=== PATIENT | male | born 1965 | race Caucasian/White ===

== ENCOUNTER 2024-04-02 04:47 | Inpatient (IN) | payer MEDICAID ==
[~2024-04-02] VITALS: Ht 175.3 cm; Wt 84.1 kg
[2024-04-02] VITALS (7 sets, daily range): BP systolic 79–95; BP diastolic 41–63; PULSE 86–90; RESP 12–19; TEMP 97.4–97.6; O2SAT 88–96
[~2024-04-02 04:47] MED LIST: CYCL-394 PO; FENT1PAT7 TOP; GABA300C PO; HYDR-4383 PO; LORA-269 PO; MELA3TAB39 PO; METH-806 PO; PANT-47 PO; PHEN-716 PO; POLY17PO10 PO; tamsulosin capsule PO
[2024-04-02 06:47] LABS: BASOPHILS % (AUTO) 0.5 % (0-1); EOSINOPHILS # (AUTO) 0.2 X10'3 (0-0.9); EOSINOPHILS % (AUTO) 2.4 % (0-6); HEMATOCRIT 30.4 % (42.0-52.0); HEMOGLOBIN 9.7 g/dl (14.0-17.9); LYMPHOCYTES # (AUTO) 1.4 X10'3 (1.1-4.8); LYMPHOCYTES % (AUTO) 15.2 % (21-51); MEAN CORPUSCULAR HEMOGLOBIN 26.6 PG (27.0-31.0); MEAN CORPUSCULAR HGB CONC 32.1 g/dL (33.0-36.5); MEAN CORPUSCULAR VOLUME 83.1 FL (78-98); MEAN PLATELET VOLUME 7.6 FL (7.4-10.4); MONOCYTES # (AUTO) 0.5 X10'3 (0-0.9); MONOCYTES % (AUTO) 4.9 % (2-12); NEUTROPHILS # (AUTO) 7.3 X10'3 (1.8-7.7); PLATELET COUNT 262 X10'3 (140-440); RED BLOOD COUNT 3.66 X10'6 (4.70-6.10); RED CELL DISTRIBUTION WIDTH 16.5 % (11.5-14.5); WHITE BLOOD COUNT 9.5 X10'3 (4.5-11.0)
[2024-04-02 06:57] LABS: ALANINE AMINOTRANSFERASE 8 U/L (12-78); ALBUMIN 2.3 G/DL (3.4-5.0); ALBUMIN/GLOBULIN RATIO 0.5 (1.1-1.5); ALKALINE PHOSPHATASE 75 IU/L (46-116); ANION GAP 7 (8-16); ASPARTATE AMINO TRANSFERASE 8 U/L (10-37); BILIRUBIN,DIRECT 0.1 MG/DL (0-0.3); BILIRUBIN,TOTAL 0.3 MG/DL (0.1-1.0); BLOOD UREA NITROGEN 48 MG/DL (7-18); BUN/CREATININE RATIO 50.5 (10.0-20.0); CALCIUM 8.8 MG/DL (8.5-10.1); CHLORIDE 101 MMOL/L (99-107); CREATININE 0.95 MG/DL (0.60-1.10); GLUCOSE 119 MG/DL (70-104); LIPASE 20 U/L (16-77); MAGNESIUM 2.1 MG/DL (1.5-2.4); POTASSIUM 3.9 MMOL/L (3.5-5.1); SODIUM 137 MMOL/L (135-145); TOTAL CARBON DIOXIDE 28.7 MMOL/L (24-32); TOTAL PROTEIN 7.3 G/DL (6.4-8.2); eCRCL 84 ML/MIN; eGFR 81 ML/MIN
[2024-04-02] MEDS: normal saline 1000ML IV soln IVB ONE (09:32)
[2024-04-02] MEDS: HYDROcodone/acetaminophen 10/325mg tab PO PRN (09:33)
[2024-04-02] MEDS: pantoprazole 40 MG vial IV STA (09:33)
[2024-04-02] MEDS: levoFLOXACIN-Levaquin 750MG/D5 150 ML IV ONE (09:34)
[2024-04-02] MEDS ORDERED: ondansetron/PF 4mg/2ml inj IV PRN (09:35)
[2024-04-02] MEDS ORDERED: potassium Cl 40MEQ/1/2NS 520ml 520 ML IV PRN (09:35)
[2024-04-02] MEDS ORDERED: acetaminophen 325mg tablet PO PRN ×2 (09:35)
[2024-04-02] MEDS ORDERED: magnesium 4gm in 100ml NS 100 ML IV PRN (09:35)
[2024-04-02] MEDS ORDERED: HYDROcodone/acetaminophen 5mg/325mg tablet PO PRN (09:35)
[2024-04-02] MEDS ORDERED: magnesium 2GM in 50ml NS 50 ML IV PRN (09:35)
[2024-04-02] MEDS ORDERED: magnesium Cl slow-release 64mg tablet PO PRN (09:35)
[2024-04-02] MEDS ORDERED: potassium Cl 20 mEq SR tablet PO PRN ×2 (09:35)
[2024-04-02] MEDS: morphine 2 MG/ML inj. syringe IV PRN (10:28)
[2024-04-02] MEDS ORDERED: iohexol 300mg/ml 100ml inj. ONE (10:35)
[2024-04-02] MEDS ORDERED: APIX5TAB5 PO (11:20)
[2024-04-02] MEDS ORDERED: APIX5TAB3 PO (11:20)
[2024-04-02] MEDS ORDERED: ESCI-8 PO (11:25)
[2024-04-02] MEDS ORDERED: GUA (11:27)
[2024-04-02] MEDS ORDERED: GUAIFENESIN PO (11:27)
[2024-04-02] MEDS ORDERED: LACTOBACILLUS ACIDOPHILUS PO (11:30)
[2024-04-02] MEDS ORDERED: PANT-47 PO (11:37)
[2024-04-02] MEDS ORDERED: POLY17PO10 PO (11:37)
[2024-04-02] MEDS ORDERED: QUET25TA PO (11:37)
[2024-04-02] MEDS ORDERED: OXYB5TAB21 PO (11:37)
[2024-04-02] MEDS ORDERED: NYST50002 PO (11:37)
[2024-04-02] MEDS ORDERED: METH-603 PO (11:37)
[2024-04-02] MEDS ORDERED: HYDR1LIQ3 IV (11:59)
[2024-04-02] MEDS ORDERED: TIOT4MIS2 INH (11:59)
[2024-04-02] MEDS ORDERED: ONDA4TAB12 PO (11:59)
[2024-04-02] MEDS ORDERED: ZINC57OI3 TOP (11:59)
[2024-04-02] MEDS ORDERED: VALP250S3 PO (11:59)
[2024-04-02] MEDS ORDERED: OXYCODONE HCL PO ×2 (11:59)
[2024-04-02] MEDS ORDERED: SENN8.6T19 PO (11:59)
[2024-04-02] MEDS ORDERED: CLON-850 PO (11:59)
[2024-04-02] MEDS ORDERED: SIME80TA15 PO (11:59)
[2024-04-02] MEDS ORDERED: VANC750P15 IV (11:59)
[2024-04-02] MEDS ORDERED: oxybutynin 5mg tablet PO PRN (12:10)
[2024-04-02] MEDS ORDERED: ondansetron 4mg rapidly disintigrating tab PO PRN (12:10)
[2024-04-02] MEDS ORDERED: guaiFENesin 200 MG/10 ML oral syrup UD cup PO PRN (12:10)
[2024-04-02] MEDS ORDERED: valproic acid 250mg/5ml UD oral syrup PO PRN (12:10)
[2024-04-02] MEDS ORDERED: HYDROMORPHONE HCL 1 MG IV PRN (12:10)
[2024-04-02] MEDS ORDERED: ipratropium 0.5 MG/2.5ML nebule NEB PRN (12:10)
[2024-04-02] MEDS ORDERED: methadone 5mg tablet PO SCH (12:13)
[2024-04-02] MEDS: clonazePAM 0.5mg tablet PO SCH (12:52)
[2024-04-02] MEDS ORDERED: methadone 10mg tablet PO SCH (14:27)
[2024-04-02] MEDS: polyethylene glycol 3350 17gm powd pack PO SCH (16:50)
[2024-04-02] MEDS: sennosides 8.6mg tablet PO SCH (16:50)
[2024-04-02] MEDS: ESCITALOPRAM 10 mg tablet 10 MG TABLET PO SCH (16:50)
[2024-04-02] MEDS: normal saline 1000ml 1,000 ML IV SCH (16:50)
[2024-04-02] MEDS: pantoprazole 40mg Tablet.DR PO SCH (16:50)
[2024-04-02] MEDS: lactobacillus rhamnosus 10,000 MMU CELLS/CAPSULE PO SCH (16:50)
[2024-04-02] MEDS: bisacodyl 10mg suppository rectal RC STA (19:00)
[2024-04-02] MEDS: zinc oxide ointment 30gm tube TP SCH (20:00)
[2024-04-02] MEDS: nystatin 500,000 unit/5ML UD oral suspension PO SCH (20:00)
[2024-04-02] MEDS: QUEtiapine 25mg tablet PO SCH (20:35)
[2024-04-02] MEDS: apixaban 5mg tablet PO SCH (20:35)
[2024-04-02] MEDS ORDERED: temazepam 15mg capsule PO PRN (21:00)
[2024-04-02] MEDS: methadone 5mg tablet PO SCH (21:17)
[2024-04-03] VITALS (7 sets, daily range): BP systolic 79–117; BP diastolic 47–66; PULSE 83–90; RESP 14–18; TEMP 98.1–98.6; O2SAT 92–96
[2024-04-03 06:22] LABS: BASOPHILS % (AUTO) 0.5 % (0-1); EOSINOPHILS # (AUTO) 0.2 X10'3 (0-0.9); EOSINOPHILS % (AUTO) 3.4 % (0-6); HEMATOCRIT 25.1 % (42.0-52.0); HEMOGLOBIN 7.9 g/dl (14.0-17.9); LYMPHOCYTES # (AUTO) 1.4 X10'3 (1.1-4.8); LYMPHOCYTES % (AUTO) 19.9 % (21-51); MEAN CORPUSCULAR HEMOGLOBIN 26.4 PG (27.0-31.0); MEAN CORPUSCULAR HGB CONC 31.3 g/dL (33.0-36.5); MEAN CORPUSCULAR VOLUME 84.2 FL (78-98); MEAN PLATELET VOLUME 7.5 FL (7.4-10.4); MONOCYTES # (AUTO) 0.4 X10'3 (0-0.9); MONOCYTES % (AUTO) 6.1 % (2-12); NEUTROPHILS # (AUTO) 4.9 X10'3 (1.8-7.7); NEUTROPHILS % (AUTO) 70.1 % (42-75); PLATELET COUNT 221 X10'3 (140-440); RED BLOOD COUNT 2.98 X10'6 (4.70-6.10); RED CELL DISTRIBUTION WIDTH 16.4 % (11.5-14.5)
[2024-04-03 06:39] LABS: % IRON SATURATION 12 % (11-46); ALANINE AMINOTRANSFERASE 12 U/L (12-78); ALBUMIN 2.1 G/DL (3.4-5.0); ALBUMIN/GLOBULIN RATIO 0.5 (1.1-1.5); ALKALINE PHOSPHATASE 58 IU/L (46-116); ANION GAP 4 (8-16); ASPARTATE AMINO TRANSFERASE 10 U/L (10-37); BILIRUBIN,TOTAL 0.2 MG/DL (0.1-1.0); BLOOD UREA NITROGEN 33 MG/DL (7-18); BUN/CREATININE RATIO 42.3 (10.0-20.0); CALCIUM 8.5 MG/DL (8.5-10.1); CHLORIDE 107 MMOL/L (99-107); CREATININE 0.78 MG/DL (0.60-1.10); GLUCOSE 97 MG/DL (70-104); IRON 23 UG/DL (53-167); POTASSIUM 3.8 MMOL/L (3.5-5.1); SODIUM 143 MMOL/L (135-145); TOTAL IRON BINDING CAPACITY 193 UG/DL (259-388); TOTAL PROTEIN 6.5 G/DL (6.4-8.2); eCRCL 102 ML/MIN; eGFR > 90 ML/MIN
[2024-04-03] MEDS: levoFLOXACIN-Levaquin 500mg/D5 100 ML IV SCH (07:40)
[2024-04-03] MEDS ORDERED: LEVO-65 PO (13:25)
[2024-04-03] MEDS: baclofen 10mg tablet PO ONE (15:41)
== END 2024-04-03 19:10 | DRG 133 ==
LOC: ER 04:49 → ED HOLD 09:39 → EDBEDREQ 12:45 → ORTHO 4S 16:10
PROVIDERS: ADMIT Internal Medicine; ATTEND Internal Medicine
PROC: BW241ZZ Computerized Tomography (CT Scan) of Chest and Abdomen using Low Osmolar Contrast (ICD-10-PCS; principal; 2024-04-02)
DX: J96.01 Acute respiratory failure with hypoxia (principal); G82.50 Quadriplegia, unspecified; J18.9 Pneumonia, unspecified organism; K92.0 Hematemesis; G93.89 Other specified disorders of brain; G89.4 Chronic pain syndrome; Z20.822 Contact with and (suspected) exposure to COVID-19; Z93.1 Gastrostomy status; Z86.718 Personal history of other venous thrombosis and embolism; Z88.1 Allergy status to other antibiotic agents; Z79.01 Long term (current) use of anticoagulants
CPT/HCPCS: 36415; 71045; 71260; 74018; 80048; 80053; 80076; 83540; 83550; 83605; 83690; 83735; 84145; 84484; 85025; 86885; 86900; 86901; 87040; 87077; 87081; 87186; 87502; 87503; 87811; 93005; 94760; 96365; 96375; 99285; C9113; G0378; J1956; J2270; J3490; J7030; Q9967

== ENCOUNTER 2024-04-14 11:20 | Day surgery (SDC) | payer MEDICAID, OTHER ==
[~2024-04-14] VITALS: Ht 175.3 cm; Wt 77.7 kg
[~2024-04-14 11:20] MED LIST changes: +APIX5TAB5 PO; +CLON-850 PO; -CYCL-394 PO; +ESCI-8 PO; -FENT1PAT7 TOP; -GABA300C PO; +GUAIFENESIN PO; -HYDR-4383 PO; +HYDR1LIQ3 IV; +LACTOBACILLUS ACIDOPHILUS PO; -LORA-269 PO; -MELA3TAB39 PO; +METH-603 PO; -METH-806 PO; +NYST50002 PO; +ONDA4TAB12 PO; +OXYB5TAB21 PO; -PHEN-716 PO; +QUET25TA PO; +SENN8.6T19 PO; +SIME80TA15 PO; +TIOT4MIS2 INH; +VALP250S3 PO; +VANC750P15 IV; +ZINC57OI3 TOP; -tamsulosin capsule PO
[2024-04-14 11:47] VITALS: BP 108/69; PULSE 69; RESP 13
[2024-04-14] MEDS ORDERED: BACL10TA2 PO (12:24)
[2024-04-14] MEDS ORDERED: POLY17PO10 PO (12:24)
[2024-04-14] MEDS ORDERED: OXYC5CAP22 PO (12:24)
[2024-04-14] MEDS ORDERED: ACET-2971 PO (12:24)
[2024-04-14] MEDS ORDERED: DOCU1ENE3 (12:24)
[2024-04-14] MEDS ORDERED: diphenhydrAMINE 50 mg/ml inj ONE (14:25)
[2024-04-14] MEDS ORDERED: MIDAZolam 1 MG/ML 5ML VIAL ONE (14:25)
[2024-04-14] MEDS ORDERED: fentaNYL/PF 50MCG/1 ML 2ML syringe ONE (14:25)
[2024-04-14] MEDS ORDERED: LIDOcaine 2% Viscous 15ml cup ONE (14:26)
[2024-04-14 14:50] VITALS: BP 83/51; PULSE 60; RESP 15; O2SAT 96
[2024-04-14 15:00] VITALS: BP 82/43; PULSE 68; RESP 16; O2SAT 99
[2024-04-14 15:10] VITALS: BP 93/51; PULSE 61; RESP 14; O2SAT 95
[2024-04-14 15:20] VITALS: BP 89/40; PULSE 63; RESP 17; O2SAT 96
[2024-04-14 16:50] VITALS: RESP 16
[2024-04-14] MEDS: oxyCODONE IR 5mg (immed. release) tablet PO ONE (16:50)
[2024-04-14] MEDS: baclofen 10mg tablet PO PRN (16:50)
== END 2024-04-14 17:00 ==
LOC: GI LAB 11:20
PROVIDERS: ATTEND Internal Medicine Gastroenterology
DX: D50.0 Iron deficiency anemia secondary to blood loss (chronic) (principal); K29.70 Gastritis, unspecified, without bleeding; Z93.1 Gastrostomy status
CPT/HCPCS: 43239; J1200; J2250; J3010; J7030; Z7512; 99152; A4620

== ENCOUNTER 2024-08-22 14:54 | Emergency (ER) | payer MEDICAID, OTHER ==
[~2024-08-22] VITALS: Ht 157.5 cm; Wt 94.0 kg
[~2024-08-22 14:54] MED LIST changes: +ACET-2971 PO; +BACL10TA2 PO; +DOCU1ENE3; +ONDA-243 PO; -ONDA4TAB12 PO; +OXYC5CAP22 PO
[2024-08-22 16:34] LABS: BILIRUBIN,URINE NEGATIVE (Neg); CLARITY,URINE CLOUDY (Clear); COLOR,URINE YELLOW (Yellow); GLUCOSE, URINE NEGATIVE (Neg); KETONES,URINE NEGATIVE (Neg); LEUKOCYTE ESTERASE ,URINE LARGE (Neg); NITRITES, URINE POSITIVE (Neg); OCCULT BLOOD,URINE TRACE-INTACT (Neg); PROTEIN,URINE NEGATIVE (Neg); UROBILINOGEN,URINE 0.2 E.U/dL (0.2-1.0)
[2024-08-22 16:35] LABS: UA COLLECTION TYPE FOLEY CATH
[2024-08-22 16:36] LABS: BASOPHILS % (AUTO) 0.4 % (0-1); EOSINOPHILS # (AUTO) 0.3 X10'3 (0-0.9); HEMATOCRIT 31.9 % (42.0-52.0); LYMPHOCYTES # (AUTO) 1.1 X10'3 (1.1-4.8); LYMPHOCYTES % (AUTO) 17.4 % (21-51); MEAN CORPUSCULAR HEMOGLOBIN 24.5 PG (27.0-31.0); MEAN CORPUSCULAR HGB CONC 31.3 g/dL (33.0-36.5); MEAN CORPUSCULAR VOLUME 78.2 FL (78-98); MEAN PLATELET VOLUME 7.5 FL (7.4-10.4); MONOCYTES # (AUTO) 0.5 X10'3 (0-0.9); MONOCYTES % (AUTO) 7.7 % (2-12); NEUTROPHILS # (AUTO) 4.2 X10'3 (1.8-7.7); NEUTROPHILS % (AUTO) 69.5 % (42-75); PLATELET COUNT 323 X10'3 (140-440); RED BLOOD COUNT 4.08 X10'6 (4.70-6.10); RED CELL DISTRIBUTION WIDTH 19.1 % (11.5-14.5); WHITE BLOOD COUNT 6.1 X10'3 (4.5-11.0)
[2024-08-22 16:45] LABS: SQUAMOUS EPITHELIAL CELL,UR MANY /LPF (FEW)
[2024-08-22 16:46] LABS: YEAST MANY /HPF (NEGATIVE)
[2024-08-22 16:47] LABS: BACTERIA,URINE 4+ /HPF (Neg); TRANSITIONAL EPI CELLS,URINE FEW /HPF; WBC,URINE TNTC /HPF (0-4)
[2024-08-22 16:48] LABS: CAL OXALATE CRYSTALS 1+ /HPF (NEGATIVE)
[2024-08-22 16:50] LABS: ALANINE AMINOTRANSFERASE 13 U/L (12-78); ALBUMIN 2.3 G/DL (3.4-5.0); ALBUMIN/GLOBULIN RATIO 0.4 (1.1-1.5); ALKALINE PHOSPHATASE 85 IU/L (46-116); ANION GAP -1 (8-16); ASPARTATE AMINO TRANSFERASE 7 U/L (10-37); BILIRUBIN,TOTAL 0.2 MG/DL (0.1-1.0); BLOOD UREA NITROGEN 23 MG/DL (7-18); BUN/CREATININE RATIO 22.5 (10.0-20.0); CALCIUM 8.8 MG/DL (8.5-10.1); CHLORIDE 98 MMOL/L (99-107); CREATININE 1.02 MG/DL (0.60-1.10); GLUCOSE 131 MG/DL (70-104); LIPASE 20 U/L (16-77); POTASSIUM 4.3 MMOL/L (3.5-5.1); SODIUM 137 MMOL/L (135-145); TOTAL CARBON DIOXIDE 39.9 MMOL/L (24-32); TOTAL PROTEIN 7.7 G/DL (6.4-8.2); eCRCL 60 ML/MIN; eGFR 75 ML/MIN
[2024-08-22] MEDS: levoFLOXACIN 250mg tablet PO ONE (16:50)
[2024-08-22 18:20] LABS: ANISOCYTOSIS 2+; MICROCYTOSIS 1+; PLATELET ESTIMATE NORMAL
[2024-08-22 18:21] LABS: POLYCHROMASIA 1+; STOMATOCYTES 2+
[2024-08-22 18:39] VITALS: BP 113/73; PULSE 98; RESP 16; TEMP 98.2; O2SAT 98
[2024-08-22] MEDS: oxyCODONE IR 5mg (immed. release) tablet PO ONE (19:08)
[2024-08-22] MEDS: HYDROmorphone inj. 0.5 MG/0.5 ML DISP.SYRIN IV ONE (19:18)
== END 2024-08-22 19:19 ==
LOC: ER 14:54
DX: G43.909 Migraine, unspecified, not intractable, without status migrainosus (principal); N39.0 Urinary tract infection, site not specified; R11.10 Vomiting, unspecified; G82.50 Quadriplegia, unspecified; Z74.01 Bed confinement status; Z88.1 Allergy status to other antibiotic agents; Z88.0 Allergy status to penicillin; Z79.899 Other long term (current) drug therapy
CPT/HCPCS: 36415; 74176; 80053; 81001; 83690; 85008; 85025; 87077; 87088; 87186; 93005; 99285

== ENCOUNTER 2024-10-22 13:04 | Inpatient (IN) | payer MEDICAID ==
[~2024-10-22] VITALS: Ht 172.7 cm; Wt 94.0 kg
[~2024-10-22 13:04] MED LIST changes: +VALP250S26 PO; -VALP250S3 PO
[2024-10-22] MEDS: midazolam 100mg in NS 100ml 100 ML IV PRN (13:17)
[2024-10-22 13:25] VITALS: BP 98/64; PULSE 93; RESP 12; O2SAT 94
[2024-10-22] MEDS: FENTANYL-0.9 % NACL/PF 100 ML IV SCH ×2 (13:33→17:40)
[2024-10-22 13:47] LABS: ABG BASE EXCESS 9.5 mmol/L (-2.0-3.0); ABG HCO3 36.6 mmol/L (21.0-28.0); ABG OXYGEN SATURATION 91.2 % (94.0-98.0); ABG PCO2 (T) 63.2 mmHg (35.0-48.0); ABG PH (T) 7.379 (7.350-7.450); ABG PO2 (T) 58.4 mmHg (83.0-108.0); ALLEN'S TEST POSITIVE; FHHb 8.8 % (0.0-5.0); FMetHb 0.3 % (0.0-1.5); FO2Hb 90.9 % (94.0-98.0); MODE VENT - PRVC; PATIENT TEMPERATURE 36.6; PEEP 5 cm H2O; RESPIRATORY RATE 12 b/min; TIDAL VOLUME 425 mL; TOTAL HEMOGLOBIN 10.5 G/dl (13.5-17.5)
[2024-10-22] MEDS: propofol 1000mg/100ml bottle 100 ML IV ONE (13:58)
[2024-10-22] MEDS: NORepinephrine 8mg/ 250ml NS 250 ML IV SCH (14:00)
[2024-10-22] MEDS ORDERED: NORepinephrine 8mg/ 250ml NS 250 ML IV PRN (14:00)
[2024-10-22] MEDS: propofol 1000mg/100ml bottle 100 ML IV SCH (14:04)
[2024-10-22 14:48] LABS: BASOPHILS # (AUTO) 0.1 X10'3 (0-0.2); BASOPHILS % (AUTO) 0.3 % (0-1); EOSINOPHILS % (AUTO) 0 % (0-6); HEMATOCRIT 30.4 % (42.0-52.0); HEMOGLOBIN 9.3 g/dl (14.0-17.9); LYMPHOCYTES # (AUTO) 0.7 X10'3 (1.1-4.8); LYMPHOCYTES % (AUTO) 3.4 % (21-51); MEAN CORPUSCULAR HEMOGLOBIN 23.9 PG (27.0-31.0); MEAN CORPUSCULAR HGB CONC 30.5 g/dL (33.0-36.5); MEAN CORPUSCULAR VOLUME 78.2 FL (78-98); MEAN PLATELET VOLUME 7.2 FL (7.4-10.4); MONOCYTES # (AUTO) 1.6 X10'3 (0-0.9); MONOCYTES % (AUTO) 7.4 % (2-12); NEUTROPHILS # (AUTO) 19.2 X10'3 (1.8-7.7); NEUTROPHILS % (AUTO) 88.9 % (42-75); PLATELET COUNT 369 X10'3 (140-440); RED BLOOD COUNT 3.88 X10'6 (4.70-6.10); RED CELL DISTRIBUTION WIDTH 17.4 % (11.5-14.5); WHITE BLOOD COUNT 21.5 X10'3 (4.5-11.0)
[2024-10-22 15:01] LABS: APTT 31 SECONDS (22-32); PROTHROMBIN TIME 10.3 SECONDS (9.0-12.0)
[2024-10-22 15:02] LABS: ALANINE AMINOTRANSFERASE 12 U/L (12-78); ALBUMIN 2.2 G/DL (3.4-5.0); ALBUMIN/GLOBULIN RATIO 0.4 (1.1-1.5); ALKALINE PHOSPHATASE 76 IU/L (46-116); ANION GAP 2 (8-16); ASPARTATE AMINO TRANSFERASE 13 U/L (10-37); BILIRUBIN,TOTAL 0.4 MG/DL (0.1-1.0); BLOOD UREA NITROGEN 30 MG/DL (7-18); CALCIUM 9.3 MG/DL (8.5-10.1); CHLORIDE 100 MMOL/L (99-107); CREATININE 1.25 MG/DL (0.60-1.10); GLUCOSE 139 MG/DL (70-104); POTASSIUM 4.6 MMOL/L (3.5-5.1); SODIUM 141 MMOL/L (135-145); TOTAL CARBON DIOXIDE 39.3 MMOL/L (24-32); TOTAL PROTEIN 7.7 G/DL (6.4-8.2); eCRCL 62 ML/MIN; eGFR 59 ML/MIN
[2024-10-22 15:26] VITALS: BP 91/57; PULSE 92; RESP 16; O2SAT 98
[2024-10-22 15:35] LABS: BILIRUBIN,URINE NEGATIVE (Neg); CLARITY,URINE CLOUDY (Clear); COLOR,URINE YELLOW (Yellow); GLUCOSE, URINE NEGATIVE (Neg); KETONES,URINE NEGATIVE (Neg); LEUKOCYTE ESTERASE ,URINE LARGE (Neg); NITRITES, URINE NEGATIVE (Neg); OCCULT BLOOD,URINE MODERATE (Neg); PROTEIN,URINE 30 mg/dl (Neg); UROBILINOGEN,URINE 0.2 E.U/dL (0.2-1.0)
[2024-10-22 15:37] LABS: UA COLLECTION TYPE FOLEY CATH
[2024-10-22 15:49] LABS: BACTERIA,URINE 3+ /HPF (Neg); SQUAMOUS EPITHELIAL CELL,UR FEW /LPF (FEW); TRANSITIONAL EPI CELLS,URINE FEW /HPF; WBC CLUMPS,URINE FEW /HPF (NEGATIVE); WBC,URINE 30-50 /HPF (0-4)
[2024-10-22 15:50] LABS: AMORPHOUS URATES 1+; YEAST MANY /HPF (NEGATIVE)
[2024-10-22] MEDS: normal saline 500ml IV soln 500 ML IV SCH (15:55)
[2024-10-22] MEDS: normal saline 1000ml 1,000 ML IV ONE ×2 (15:56→17:59)
[2024-10-22] MEDS ORDERED: iohexol 300mg/ml 100ml inj. ONE (16:56)
[2024-10-22 17:40] VITALS: PULSE 93; RESP 16; O2SAT 98
[2024-10-22] MEDS ORDERED: acetaminophen 325mg tablet PO PRN ×2 (17:40)
[2024-10-22] MEDS ORDERED: morphine 4 MG/ML inj SYRINge IV PRN (17:40)
[2024-10-22] MEDS: metroNIDAZOLE-Flagyl 500mg/NS 100 ML IV STA (17:40)
[2024-10-22] MEDS ORDERED: morphine 2 MG/ML inj. syringe IV PRN (17:40)
[2024-10-22] MEDS ORDERED: magnesium hydroxide 30ml (MOM) UD suspension PO PRN (17:40)
[2024-10-22] MEDS: furosemide 10 MG/1 ML 10ml inj IV ONE (17:40)
[2024-10-22] MEDS: LidoCAINE 2% Topical Jelly 11mL syringe (UROJET) TOP ONE (18:38)
[2024-10-22 19:08] VITALS: BP 109/56; PULSE 82; RESP 16; O2SAT 94
[2024-10-22] MEDS: ertapenem sod inj 1 GM in normal saline 100ml IV soln 100 ML IV ONE (19:20)
[2024-10-22 19:35] LABS: ABG BASE EXCESS 11.6 mmol/L (-2.0-3.0); ABG HCO3 37.3 mmol/L (21.0-28.0); ABG OXYGEN SATURATION 92.9 % (94.0-98.0); ABG PCO2 (T) 57.9 mmHg (35.0-48.0); ABG PH (T) 7.431 (7.350-7.450); ABG PO2 (T) 67.4 mmHg (83.0-108.0); ALLEN'S TEST POSITIVE; FCOHb 0.2 % (0.5-1.5); FHHb 7.1 % (0.0-5.0); FMetHb 0.3 % (0.0-1.5); FO2Hb 92.4 % (94.0-98.0); MODE VENT - PRVC; PATIENT TEMPERATURE 38.1; PEEP 8 cm H2O; RESPIRATORY RATE 16 b/min; TIDAL VOLUME 325 mL; TOTAL HEMOGLOBIN 10.3 G/dl (13.5-17.5)
[2024-10-22 21:19] VITALS: BP 110/62; PULSE 83; RESP 16; O2SAT 96
[2024-10-22] MEDS: furosemide 10 MG/1 ML 10ml inj IV SCH (22:06)
[2024-10-22 23:04] VITALS: BP 103/57; PULSE 84; RESP 16; O2SAT 94
[2024-10-23] VITALS (22 sets, daily range): BP systolic 89–129; BP diastolic 55–77; PULSE 68–94; RESP 12–33; O2SAT 87–97
[2024-10-23] MEDS: heparin, porcine 5000 units/ml vial SQ SCH (02:02)
[2024-10-23 03:12] LABS: ABG BASE EXCESS 15.6 mmol/L (-2.0-3.0); ABG HCO3 40.7 mmol/L (21.0-28.0); ABG OXYGEN SATURATION 94.2 % (94.0-98.0); ABG PH (T) 7.545 (7.350-7.450); ABG PO2 (T) 53.2 mmHg (83.0-108.0); ALLEN'S TEST POSITIVE; FCOHb 0.1 % (0.5-1.5); FHHb 5.8 % (0.0-5.0); FMetHb 0.3 % (0.0-1.5); FO2Hb 93.8 % (94.0-98.0); MODE VENT - PRVC; PATIENT TEMPERATURE 34.2; PEEP 8 cm H2O; RESPIRATORY RATE 16 b/min; TIDAL VOLUME 325 mL; TOTAL HEMOGLOBIN 9.7 G/dl (13.5-17.5)
[2024-10-23] MEDS: ondansetron/PF 4mg/2ml inj IV ONE (03:42)
[2024-10-23] MEDS: normal saline 1000ML IV soln IVB ONE (03:42)
[2024-10-23 06:20] LABS: BASOPHILS % (AUTO) 0.1 % (0-1); EOSINOPHILS # (AUTO) 0.1 X10'3 (0-0.9); EOSINOPHILS % (AUTO) 0.5 % (0-6); HEMOGLOBIN 8.8 g/dl (14.0-17.9); LYMPHOCYTES % (AUTO) 7.8 % (21-51); MEAN CORPUSCULAR HEMOGLOBIN 24.4 PG (27.0-31.0); MEAN CORPUSCULAR HGB CONC 31.6 g/dL (33.0-36.5); MEAN CORPUSCULAR VOLUME 77.4 FL (78-98); MEAN PLATELET VOLUME 7.5 FL (7.4-10.4); MONOCYTES # (AUTO) 0.9 X10'3 (0-0.9); MONOCYTES % (AUTO) 6.8 % (2-12); NEUTROPHILS # (AUTO) 11.4 X10'3 (1.8-7.7); NEUTROPHILS % (AUTO) 84.8 % (42-75); PLATELET COUNT 361 X10'3 (140-440); RED BLOOD COUNT 3.62 X10'6 (4.70-6.10); RED CELL DISTRIBUTION WIDTH 17.4 % (11.5-14.5); WHITE BLOOD COUNT 13.4 X10'3 (4.5-11.0)
[2024-10-23 06:27] LABS: ALANINE AMINOTRANSFERASE 13 U/L (12-78); ALBUMIN 2.1 G/DL (3.4-5.0); ALBUMIN/GLOBULIN RATIO 0.4 (1.1-1.5); ALKALINE PHOSPHATASE 78 IU/L (46-116); ANION GAP 4 (8-16); ASPARTATE AMINO TRANSFERASE 10 U/L (10-37); BILIRUBIN,TOTAL 0.2 MG/DL (0.1-1.0); BLOOD UREA NITROGEN 26 MG/DL (7-18); BUN/CREATININE RATIO 29.9 (10.0-20.0); CHLORIDE 100 MMOL/L (99-107); CREATININE 0.87 MG/DL (0.60-1.10); GLUCOSE 123 MG/DL (70-104); PHOSPHORUS 3.1 MG/DL (2.3-4.5); SODIUM 144 MMOL/L (135-145); TOTAL CARBON DIOXIDE 39.6 MMOL/L (24-32); TOTAL PROTEIN 7.5 G/DL (6.4-8.2); eCRCL 88 ML/MIN; eGFR 90 ML/MIN
[2024-10-23] MEDS: metroNIDAZOLE-Flagyl 500mg/NS 100 ML IV SCH (07:04)
[2024-10-23] MEDS: ERTAPENEM SOD IV SCH (08:19)
[2024-10-23] MEDS: STERILE IV SCH (08:19)
[2024-10-23] MEDS: [UNRECOGNIZED DRUG - OTHER] IV SCH (08:19)
[2024-10-23] MEDS: DAPTOmycin inj. 500 MG in normal saline 100ml IV soln 100 ML IV SCH (08:19)
[2024-10-23] MEDS: WATER FOR INJECTION IV SCH (08:19)
[2024-10-23] MEDS: pantoprazole 40MG/NS 100ML BAG 100 ML IV SCH (08:28)
[2024-10-23] MEDS: ipratropium/albuterol 3ml nebule NEB PRN (11:22)
[2024-10-23 11:45] LABS: ABG BASE EXCESS 14.6 mmol/L (-2.0-3.0); ABG HCO3 40.6 mmol/L (21.0-28.0); ABG PCO2 (T) 59.3 mmHg (35.0-48.0); ABG PH (T) 7.453 (7.350-7.450); ALLEN'S TEST POSITIVE; FCOHb 0.3 % (0.5-1.5); FHHb 11.9 % (0.0-5.0); FMetHb 0.3 % (0.0-1.5); FO2Hb 87.5 % (94.0-98.0); MODE VENT - AC/PRVC; PEEP 8 cm H2O; RESPIRATORY RATE 12 b/min; TIDAL VOLUME 350 mL; TOTAL HEMOGLOBIN 9.9 G/dl (13.5-17.5)
[2024-10-23] MEDS: POTASSIUM BICARB 20meq eff tab 20 MEQ TABLET.EFF OGT SCH (12:03)
[2024-10-23 15:56] LABS: ALBUMIN 2.1 G/DL (3.4-5.0); ANION GAP 2 (8-16); BLOOD UREA NITROGEN 24 MG/DL (7-18); BUN/CREATININE RATIO 28.9 (10.0-20.0); CALCIUM 8.9 MG/DL (8.5-10.1); CHLORIDE 99 MMOL/L (99-107); CREATININE 0.83 MG/DL (0.60-1.10); GLUCOSE 109 MG/DL (70-104); POTASSIUM 3.2 MMOL/L (3.5-5.1); SODIUM 143 MMOL/L (135-145); eCRCL 93 ML/MIN; eGFR > 90 ML/MIN
[2024-10-23 16:03] LABS: TOTAL CARBON DIOXIDE 42.1 MMOL/L (24-32)
[2024-10-23] MEDS: albumin (Human) 5% 250ml 250 ML IV ONE ×2 (16:18→17:31)
[2024-10-23] MEDS ORDERED: sodium phosphate inj. 30 MMOL in dextrose 5%-water 250 ML IV PRN (19:10)
[2024-10-23] MEDS ORDERED: sodium phosphate inj. 15 MMOL in dextrose 5%-water 250 ML IV PRN (19:10)
[2024-10-23] MEDS ORDERED: magnesium sulf-water 4G/100mL 100 ML IV PRN (19:10)
[2024-10-23] MEDS ORDERED: magnesium sulf-water 2g/50mL 50 ML IV PRN (19:10)
[2024-10-23] MEDS ORDERED: potassium Cl 20 mEq SR tablet PO PRN ×2 (19:10)
[2024-10-23] MEDS: mineral oil/petrolatum ophthal oint EACHEYE SCH (20:00)
[2024-10-23] MEDS: POTASSIUM CHLORIDE 20 MEQ/15 ML oral solution OGT SCH (21:02)
[2024-10-24] VITALS (37 sets, daily range): BP systolic 80–120; BP diastolic 51–77; PULSE 86–111; RESP 11–40; O2SAT 91–99
[2024-10-24] MEDS: propofol 1000mg/100ml bottle 100 ML IV SCH (01:23)
[2024-10-24 02:36] LABS: BASOPHILS % (AUTO) 0.4 % (0-1); EOSINOPHILS # (AUTO) 0.3 X10'3 (0-0.9); EOSINOPHILS % (AUTO) 2.5 % (0-6); HEMOGLOBIN 9.4 g/dl (14.0-17.9); LYMPHOCYTES # (AUTO) 0.9 X10'3 (1.1-4.8); LYMPHOCYTES % (AUTO) 8.7 % (21-51); MEAN CORPUSCULAR HEMOGLOBIN 24.7 PG (27.0-31.0); MEAN CORPUSCULAR HGB CONC 32.2 g/dL (33.0-36.5); MEAN CORPUSCULAR VOLUME 76.6 FL (78-98); MEAN PLATELET VOLUME 7.1 FL (7.4-10.4); MONOCYTES # (AUTO) 0.9 X10'3 (0-0.9); MONOCYTES % (AUTO) 8.3 % (2-12); NEUTROPHILS # (AUTO) 8.5 X10'3 (1.8-7.7); NEUTROPHILS % (AUTO) 80.1 % (42-75); PLATELET COUNT 359 X10'3 (140-440); RED BLOOD COUNT 3.79 X10'6 (4.70-6.10); RED CELL DISTRIBUTION WIDTH 18.3 % (11.5-14.5); WHITE BLOOD COUNT 10.6 X10'3 (4.5-11.0)
[2024-10-24 02:52] LABS: ALBUMIN 2.2 G/DL (3.4-5.0); ANION GAP 4 (8-16); BLOOD UREA NITROGEN 23 MG/DL (7-18); BUN/CREATININE RATIO 27.1 (10.0-20.0); CALCIUM 8.8 MG/DL (8.5-10.1); CHLORIDE 100 MMOL/L (99-107); CREATININE 0.85 MG/DL (0.60-1.10); GLUCOSE 112 MG/DL (70-104); MAGNESIUM 2.2 MG/DL (1.5-2.4); PHOSPHORUS 3.3 MG/DL (2.3-4.5); POTASSIUM 3.2 MMOL/L (3.5-5.1); SODIUM 144 MMOL/L (135-145); TOTAL CARBON DIOXIDE 39.9 MMOL/L (24-32); eCRCL 91 ML/MIN; eGFR > 90 ML/MIN
[2024-10-24] MEDS: potassium Cl 40MEQ/270ML bag 270 ML IV PRN (03:56)
[2024-10-24 04:01] LABS: ABG BASE EXCESS 12.8 mmol/L (-2.0-3.0); ABG PCO2 (T) 53.2 mmHg (35.0-48.0); ABG PH (T) 7.473 (7.350-7.450); ABG PO2 (T) 161.6 mmHg (83.0-108.0); ALLEN'S TEST POSITIVE; FCOHb 0.3 % (0.5-1.5); FMetHb 0.3 % (0.0-1.5); FO2Hb 98.4 % (94.0-98.0); MODE VENT - AC; PATIENT TEMPERATURE 37.2; PEEP 8 cm H2O; RESPIRATORY RATE 12 b/min; TIDAL VOLUME 350 mL; TOTAL HEMOGLOBIN 10.4 G/dl (13.5-17.5)
[2024-10-24] MEDS ORDERED: APIX5TAB3 PO (15:13)
[2024-10-24] MEDS ORDERED: DULO-31 PO (15:14)
[2024-10-24] MEDS ORDERED: FLUT9.9S BOTHNARES (15:15)
[2024-10-24] MEDS ORDERED: GABA-530 PO (15:15)
[2024-10-24] MEDS ORDERED: LORA10TA7 PO (15:16)
[2024-10-24] MEDS ORDERED: NYSPWD TP (15:18)
[2024-10-24] MEDS ORDERED: VALP250C44 PO (15:21)
[2024-10-24] MEDS ORDERED: ALB0.5UD IH (15:22)
[2024-10-24] MEDS ORDERED: CLON-850 PO (15:25)
[2024-10-24] MEDS ORDERED: DIPH25CA52 PO (15:27)
[2024-10-24] MEDS ORDERED: DILAUDID SQ (15:31)
[2024-10-24] MEDS ORDERED: DILAUDID IV (15:31)
[2024-10-24] MEDS ORDERED: DOCU100E RC (15:31)
[2024-10-24] MEDS ORDERED: LIDO5CRE26 TOP (15:33)
[2024-10-24] MEDS ORDERED: MENTHOL PO (15:33)
[2024-10-24] MEDS ORDERED: OXYB15TA19 PO (15:33)
[2024-10-24] MEDS ORDERED: OXYC-658 PO (15:34)
[2024-10-24] MEDS ORDERED: SIME80TA15 PO (15:36)
[2024-10-24] MEDS: furosemide 10 MG/1 ML 10ml inj IV ONE (15:50)
[2024-10-25] VITALS (36 sets, daily range): BP systolic 93–125; BP diastolic 57–80; PULSE 78–105; RESP 12–32; O2SAT 93–98
[2024-10-25 02:46] LABS: BASOPHILS # (AUTO) 0.1 X10'3 (0-0.2); EOSINOPHILS # (AUTO) 0.3 X10'3 (0-0.9); EOSINOPHILS % (AUTO) 3.4 % (0-6); HEMATOCRIT 32.3 % (42.0-52.0); HEMOGLOBIN 10.3 g/dl (14.0-17.9); LYMPHOCYTES # (AUTO) 1.8 X10'3 (1.1-4.8); LYMPHOCYTES % (AUTO) 17.9 % (21-51); MEAN CORPUSCULAR HEMOGLOBIN 24.4 PG (27.0-31.0); MEAN CORPUSCULAR HGB CONC 31.8 g/dL (33.0-36.5); MEAN CORPUSCULAR VOLUME 76.8 FL (78-98); MEAN PLATELET VOLUME 7.3 FL (7.4-10.4); MONOCYTES # (AUTO) 0.8 X10'3 (0-0.9); MONOCYTES % (AUTO) 7.9 % (2-12); NEUTROPHILS # (AUTO) 6.9 X10'3 (1.8-7.7); NEUTROPHILS % (AUTO) 69.8 % (42-75); PLATELET COUNT 446 X10'3 (140-440); RED CELL DISTRIBUTION WIDTH 17.9 % (11.5-14.5); WHITE BLOOD COUNT 9.8 X10'3 (4.5-11.0)
[2024-10-25 03:16] LABS: ALANINE AMINOTRANSFERASE 15 U/L (12-78); ALBUMIN 2.5 G/DL (3.4-5.0); ALBUMIN/GLOBULIN RATIO 0.4 (1.1-1.5); ALKALINE PHOSPHATASE 94 IU/L (46-116); ANION GAP 8 (8-16); ASPARTATE AMINO TRANSFERASE 13 U/L (10-37); BILIRUBIN,TOTAL 0.3 MG/DL (0.1-1.0); BLOOD UREA NITROGEN 27 MG/DL (7-18); BUN/CREATININE RATIO 22.9 (10.0-20.0); CALCIUM 9.6 MG/DL (8.5-10.1); CHLORIDE 103 MMOL/L (99-107); CREATININE 1.18 MG/DL (0.60-1.10); GLUCOSE 125 MG/DL (70-104); MAGNESIUM 2.1 MG/DL (1.5-2.4); PHOSPHORUS 4.4 MG/DL (2.3-4.5); POTASSIUM 3.4 MMOL/L (3.5-5.1); PREALBUMIN 18.4 MG/DL (19-36); SODIUM 145 MMOL/L (135-145); TOTAL CARBON DIOXIDE 34.2 MMOL/L (24-32); TOTAL PROTEIN 8.7 G/DL (6.4-8.2); eCRCL 65 ML/MIN; eGFR 63 ML/MIN
[2024-10-25 03:39] LABS: ABG BASE EXCESS 9.7 mmol/L (-2.0-3.0); ABG HCO3 34.6 mmol/L (21.0-28.0); ABG OXYGEN SATURATION 95.9 % (94.0-98.0); ABG PCO2 (T) 48.8 mmHg (35.0-48.0); ABG PH (T) 7.469 (7.350-7.450); ABG PO2 (T) 80.4 mmHg (83.0-108.0); ALLEN'S TEST POSITIVE; FCOHb 0.5 % (0.5-1.5); FHHb 4.1 % (0.0-5.0); FMetHb 0.3 % (0.0-1.5); FO2Hb 95.1 % (94.0-98.0); MODE VENT - AC; PATIENT TEMPERATURE 37.2; PEEP 7 cm H2O; RESPIRATORY RATE 12 b/min; TIDAL VOLUME 350 mL; TOTAL HEMOGLOBIN 11.7 G/dl (13.5-17.5)
[2024-10-25] MEDS ORDERED: acetaminophen 325mg/10.15ml oral unit dose solution PEG PRN (11:43)
[2024-10-25] MEDS ORDERED: magnesium hydroxide 30ml (MOM) UD suspension PEG PRN (11:53)
[2024-10-25] MEDS ORDERED: potassium Cl 20 mEq SR tablet PEG PRN (12:37)
[2024-10-25] MEDS ORDERED: POTASSIUM CHLORIDE 20 MEQ/15 ML oral solution PEG PRN ×2 (12:38)
[2024-10-25] MEDS: POTASSIUM CHLORIDE 20 MEQ/15 ML oral solution PEG SCH (13:21)
[2024-10-25] MEDS ORDERED: dextrose 50%-water 50ml dispensing syringe IV PRN ×2 (15:05)
[2024-10-25] MEDS ORDERED: DEXTROSE 15 GM of carb/4 tabs (each vial/BOTTLE has 4 tablets) PO PRN ×2 (15:05)
[2024-10-25] MEDS ORDERED: glucagon, human recombinant 1mg kit SUBCUT PRN (15:05)
[2024-10-25] MEDS: insulin regular, human U-100 10ml vial - multi-dose SQ SCH (20:00)
[2024-10-25] MEDS: furosemide 40mg/4ml inj IV SCH (20:33)
[2024-10-26] VITALS (34 sets, daily range): BP systolic 88–128; BP diastolic 50–78; PULSE 80–115; RESP 12–27; O2SAT 91–97
[2024-10-26 02:43] LABS: BASOPHILS # (AUTO) 0.1 X10'3 (0-0.2); BASOPHILS % (AUTO) 1.1 % (0-1); EOSINOPHILS # (AUTO) 0.5 X10'3 (0-0.9); HEMATOCRIT 33.8 % (42.0-52.0); HEMOGLOBIN 10.6 g/dl (14.0-17.9); LYMPHOCYTES # (AUTO) 1.4 X10'3 (1.1-4.8); MEAN CORPUSCULAR HEMOGLOBIN 24.5 PG (27.0-31.0); MEAN CORPUSCULAR HGB CONC 31.3 g/dL (33.0-36.5); MEAN CORPUSCULAR VOLUME 78.1 FL (78-98); MEAN PLATELET VOLUME 7.3 FL (7.4-10.4); MONOCYTES # (AUTO) 0.5 X10'3 (0-0.9); MONOCYTES % (AUTO) 5.9 % (2-12); NEUTROPHILS # (AUTO) 5.9 X10'3 (1.8-7.7); PLATELET COUNT 491 X10'3 (140-440); RED BLOOD COUNT 4.34 X10'6 (4.70-6.10); RED CELL DISTRIBUTION WIDTH 18.1 % (11.5-14.5); WHITE BLOOD COUNT 8.4 X10'3 (4.5-11.0)
[2024-10-26 02:56] LABS: ALANINE AMINOTRANSFERASE 15 U/L (12-78); ALBUMIN 2.6 G/DL (3.4-5.0); ALBUMIN/GLOBULIN RATIO 0.4 (1.1-1.5); ALKALINE PHOSPHATASE 96 IU/L (46-116); ANION GAP 7 (8-16); ASPARTATE AMINO TRANSFERASE 11 U/L (10-37); BILIRUBIN,TOTAL 0.3 MG/DL (0.1-1.0); CALCIUM 9.3 MG/DL (8.5-10.1); CHLORIDE 109 MMOL/L (99-107); CREATINE KINASE 80 U/L (39-308); CREATININE 1.19 MG/DL (0.60-1.10); GLUCOSE 188 MG/DL (70-104); MAGNESIUM 2.5 MG/DL (1.5-2.4); PHOSPHORUS 4.5 MG/DL (2.3-4.5); SODIUM 148 MMOL/L (135-145); TOTAL CARBON DIOXIDE 32.2 MMOL/L (24-32); TOTAL PROTEIN 8.5 G/DL (6.4-8.2); eCRCL 65 ML/MIN; eGFR 63 ML/MIN
[2024-10-26 03:03] LABS: BLOOD UREA NITROGEN 35 MG/DL (7-18); BUN/CREATININE RATIO 29.4 (10.0-20.0)
[2024-10-26 03:14] LABS: ABG BASE EXCESS 4.6 mmol/L (-2.0-3.0); ABG HCO3 29.6 mmol/L (21.0-28.0); ABG PCO2 (T) 44.9 mmHg (35.0-48.0); ABG PH (T) 7.435 (7.350-7.450); ABG PO2 (T) 73.9 mmHg (83.0-108.0); ALLEN'S TEST Modified; FCOHb 0.5 % (0.5-1.5); FMetHb 0.3 % (0.0-1.5); FO2Hb 94.2 % (94.0-98.0); MODE prvc; PATIENT TEMPERATURE 36.7; PEEP 7 cm H2O; RESPIRATORY RATE 12 b/min; TIDAL VOLUME 350 mL; TOTAL HEMOGLOBIN 11.7 G/dl (13.5-17.5)
[2024-10-26] MEDS ORDERED: DEXTROSE 15 GM of carb/4 tabs (each vial/BOTTLE has 4 tablets) PEG PRN ×2 (11:17)
[2024-10-26] MEDS: valproic acid 250mg/5ml UD oral syrup PEG SCH (13:45)
[2024-10-26] MEDS: GABAPENTIN 300 MG/6 ML oral SOLUTION cup PEG SCH (16:26)
[2024-10-26] MEDS: QUEtiapine 25mg tablet PEG SCH (20:23)
[2024-10-26 20:59] LABS: POTASSIUM 3.9 MMOL/L (3.5-5.1)
[2024-10-26 21:12] LABS: ALBUMIN 2.5 G/DL (3.4-5.0); ANION GAP 9 (8-16); BLOOD UREA NITROGEN 43 MG/DL (7-18); BUN/CREATININE RATIO 36.8 (10.0-20.0); CALCIUM 9.1 MG/DL (8.5-10.1); CHLORIDE 110 MMOL/L (99-107); CREATININE 1.17 MG/DL (0.60-1.10); GLUCOSE 177 MG/DL (70-104); SODIUM 151 MMOL/L (135-145); TOTAL CARBON DIOXIDE 31.9 MMOL/L (24-32); eCRCL 66 ML/MIN; eGFR 64 ML/MIN
[2024-10-27] VITALS (36 sets, daily range): BP systolic 83–131; BP diastolic 50–84; PULSE 78–150; RESP 11–42; O2SAT 89–98
[2024-10-27 02:42] LABS: MEAN CORPUSCULAR VOLUME 77.8 FL (78-98)
[2024-10-27 02:47] LABS: BASOPHILS # (AUTO) 0.1 X10'3 (0-0.2); BASOPHILS % (AUTO) 1.3 % (0-1); EOSINOPHILS # (AUTO) 0.8 X10'3 (0-0.9); EOSINOPHILS % (AUTO) 8.5 % (0-6); HEMATOCRIT 33.8 % (42.0-52.0); HEMOGLOBIN 10.4 g/dl (14.0-17.9); LYMPHOCYTES % (AUTO) 22.2 % (21-51); MEAN CORPUSCULAR HGB CONC 30.9 g/dL (33.0-36.5); MEAN PLATELET VOLUME 7.4 FL (7.4-10.4); MONOCYTES # (AUTO) 0.8 X10'3 (0-0.9); MONOCYTES % (AUTO) 8.9 % (2-12); NEUTROPHILS # (AUTO) 5.4 X10'3 (1.8-7.7); NEUTROPHILS % (AUTO) 59.1 % (42-75); PLATELET COUNT 436 X10'3 (140-440); RED BLOOD COUNT 4.35 X10'6 (4.70-6.10); WHITE BLOOD COUNT 9.1 X10'3 (4.5-11.0)
[2024-10-27 02:55] LABS: ALANINE AMINOTRANSFERASE 20 U/L (12-78); ALBUMIN 2.5 G/DL (3.4-5.0); ALBUMIN/GLOBULIN RATIO 0.4 (1.1-1.5); ALKALINE PHOSPHATASE 95 IU/L (46-116); ANION GAP 5 (8-16); ASPARTATE AMINO TRANSFERASE 12 U/L (10-37); BILIRUBIN,TOTAL 0.3 MG/DL (0.1-1.0); BLOOD UREA NITROGEN 45 MG/DL (7-18); BUN/CREATININE RATIO 40.9 (10.0-20.0); CALCIUM 9.4 MG/DL (8.5-10.1); CHLORIDE 110 MMOL/L (99-107); GLUCOSE 178 MG/DL (70-104); MAGNESIUM 2.6 MG/DL (1.5-2.4); PHOSPHORUS 5.1 MG/DL (2.3-4.5); POTASSIUM 4.1 MMOL/L (3.5-5.1); SODIUM 151 MMOL/L (135-145); TOTAL CARBON DIOXIDE 35.7 MMOL/L (24-32); TOTAL PROTEIN 8.5 G/DL (6.4-8.2); eCRCL 70 ML/MIN; eGFR 69 ML/MIN
[2024-10-27 03:04] LABS: ABG BASE EXCESS 1.5 mmol/L (-2.0-3.0); ABG HCO3 27.5 mmol/L (21.0-28.0); ABG OXYGEN SATURATION 96.5 % (94.0-98.0); ABG PCO2 (T) 46.7 mmHg (35.0-48.0); ABG PH (T) 7.382 (7.350-7.450); ABG PO2 (T) 78.8 mmHg (83.0-108.0); ALLEN'S TEST Modified; FCOHb 0.6 % (0.5-1.5); FHHb 3.5 % (0.0-5.0); FMetHb 0.3 % (0.0-1.5); FO2Hb 95.6 % (94.0-98.0); MODE prvc; PATIENT TEMPERATURE 35.7; PEEP 5 cm H2O; RESPIRATORY RATE 12 b/min; TIDAL VOLUME 350 mL; TOTAL HEMOGLOBIN 11.3 G/dl (13.5-17.5)
[2024-10-27] MEDS: duloxetine 30mg CAPSULE.DR PEG SCH (08:03)
[2024-10-27] MEDS: sennosides 8.6mg tablet PO SCH (19:59)
[2024-10-27] MEDS: apixaban 5mg tablet PO SCH (19:59)
[2024-10-28] VITALS (33 sets, daily range): BP systolic 86–122; BP diastolic 47–65; PULSE 70–109; RESP 10–25; O2SAT 9–98
[2024-10-28 02:12] LABS: BASOPHILS # (AUTO) 0.2 X10'3 (0-0.2); BASOPHILS % (AUTO) 2.3 % (0-1); EOSINOPHILS # (AUTO) 0.6 X10'3 (0-0.9); EOSINOPHILS % (AUTO) 6.6 % (0-6); HEMATOCRIT 32.4 % (42.0-52.0); HEMOGLOBIN 10.1 g/dl (14.0-17.9); LYMPHOCYTES # (AUTO) 2.3 X10'3 (1.1-4.8); LYMPHOCYTES % (AUTO) 23.9 % (21-51); MEAN CORPUSCULAR HEMOGLOBIN 24.3 PG (27.0-31.0); MEAN CORPUSCULAR HGB CONC 31.1 g/dL (33.0-36.5); MEAN PLATELET VOLUME 7.2 FL (7.4-10.4); MONOCYTES # (AUTO) 0.9 X10'3 (0-0.9); MONOCYTES % (AUTO) 9.1 % (2-12); NEUTROPHILS # (AUTO) 5.5 X10'3 (1.8-7.7); NEUTROPHILS % (AUTO) 58.1 % (42-75); PLATELET COUNT 393 X10'3 (140-440); RED BLOOD COUNT 4.15 X10'6 (4.70-6.10); RED CELL DISTRIBUTION WIDTH 18.3 % (11.5-14.5); WHITE BLOOD COUNT 9.5 X10'3 (4.5-11.0)
[2024-10-28 02:26] LABS: ALANINE AMINOTRANSFERASE 28 U/L (12-78); ALBUMIN 2.5 G/DL (3.4-5.0); ALBUMIN/GLOBULIN RATIO 0.4 (1.1-1.5); ALKALINE PHOSPHATASE 90 IU/L (46-116); ANION GAP 11 (8-16); ASPARTATE AMINO TRANSFERASE 27 U/L (10-37); BILIRUBIN,TOTAL 0.2 MG/DL (0.1-1.0); BLOOD UREA NITROGEN 52 MG/DL (7-18); CALCIUM 9.1 MG/DL (8.5-10.1); CHLORIDE 109 MMOL/L (99-107); CREATININE 1.13 MG/DL (0.60-1.10); GLUCOSE 166 MG/DL (70-104); MAGNESIUM 2.8 MG/DL (1.5-2.4); POTASSIUM 3.5 MMOL/L (3.5-5.1); SODIUM 152 MMOL/L (135-145); TOTAL CARBON DIOXIDE 32.4 MMOL/L (24-32); TOTAL PROTEIN 8.1 G/DL (6.4-8.2); eCRCL 68 ML/MIN; eGFR 66 ML/MIN
[2024-10-28] MEDS: albumin (Human) 5% 250ml 250 ML IV ONE (02:45)
[2024-10-28] MEDS: dexmedetomidin/NS 400mcg/100ml 100 ML IV SCH ×2 (02:53→04:05)
[2024-10-28] MEDS ORDERED: dexmedetomidin/NS 400mcg/100ml 100 ML IV SCH (03:58)
[2024-10-28 03:59] LABS: ABG BASE EXCESS 7.1 mmol/L (-2.0-3.0); ABG HCO3 33.2 mmol/L (21.0-28.0); ABG OXYGEN SATURATION 94.5 % (94.0-98.0); ABG PCO2 (T) 54.3 mmHg (35.0-48.0); ABG PH (T) 7.403 (7.350-7.450); ABG PO2 (T) 73.7 mmHg (83.0-108.0); ALLEN'S TEST Modified; FCOHb 0.6 % (0.5-1.5); FHHb 5.5 % (0.0-5.0); FMetHb 0.3 % (0.0-1.5); FO2Hb 93.6 % (94.0-98.0); MODE prvc; PATIENT TEMPERATURE 36.9; PEEP 5 cm H2O; RESPIRATORY RATE 12 b/min; TIDAL VOLUME 350 mL; TOTAL HEMOGLOBIN 10.7 G/dl (13.5-17.5)
[2024-10-28] MEDS: acetaminophen 325mg/10.15ml oral unit dose solution PEG PRN (07:40)
[2024-10-28] MEDS: ondansetron/PF 4mg/2ml inj IV PRN (09:02)
[2024-10-28] MEDS: baclofen 10mg tablet PO PRN (10:57)
[2024-10-28] MEDS: clonazePAM 0.5mg tablet PO PRN (10:57)
[2024-10-28] MEDS ORDERED: oxyCODONE 20 mg/ml concentrated oral syringe PEG PRN (12:50)
[2024-10-28] MEDS ORDERED: HYDROcodone/acetaminophen 7.5MG/325MG per 15ml UD CUP PO PRN (13:00)
[2024-10-29] VITALS (12 sets, daily range): BP systolic 106–146; BP diastolic 54–72; PULSE 104–115; RESP 13–25; TEMP 99.2–99.8; O2SAT 94–97
[2024-10-29 02:02] LABS: BASOPHILS # (AUTO) 0.1 X10'3 (0-0.2); BASOPHILS % (AUTO) 1.2 % (0-1); EOSINOPHILS # (AUTO) 0.2 X10'3 (0-0.9); EOSINOPHILS % (AUTO) 2.5 % (0-6); HEMATOCRIT 29.7 % (42.0-52.0); HEMOGLOBIN 9.3 g/dl (14.0-17.9); LYMPHOCYTES # (AUTO) 1.7 X10'3 (1.1-4.8); LYMPHOCYTES % (AUTO) 17.4 % (21-51); MEAN CORPUSCULAR HEMOGLOBIN 24.2 PG (27.0-31.0); MEAN CORPUSCULAR HGB CONC 31.4 g/dL (33.0-36.5); MEAN PLATELET VOLUME 7.1 FL (7.4-10.4); NEUTROPHILS # (AUTO) 6.7 X10'3 (1.8-7.7); NEUTROPHILS % (AUTO) 68.9 % (42-75); PLATELET COUNT 344 X10'3 (140-440); RED BLOOD COUNT 3.85 X10'6 (4.70-6.10); RED CELL DISTRIBUTION WIDTH 18.2 % (11.5-14.5); WHITE BLOOD COUNT 9.7 X10'3 (4.5-11.0)
[2024-10-29 02:18] LABS: ALANINE AMINOTRANSFERASE 25 U/L (12-78); ALBUMIN 2.7 G/DL (3.4-5.0); ALBUMIN/GLOBULIN RATIO 0.5 (1.1-1.5); ALKALINE PHOSPHATASE 97 IU/L (46-116); ANION GAP 7 (8-16); ASPARTATE AMINO TRANSFERASE 15 U/L (10-37); BILIRUBIN,TOTAL 0.2 MG/DL (0.1-1.0); BLOOD UREA NITROGEN 51 MG/DL (7-18); BUN/CREATININE RATIO 59.3 (10.0-20.0); CALCIUM 9.2 MG/DL (8.5-10.1); CHLORIDE 110 MMOL/L (99-107); CREATININE 0.86 MG/DL (0.60-1.10); GLUCOSE 161 MG/DL (70-104); MAGNESIUM 2.7 MG/DL (1.5-2.4); PHOSPHORUS 3.5 MG/DL (2.3-4.5); POTASSIUM 3.5 MMOL/L (3.5-5.1); PREALBUMIN 31.4 MG/DL (19-36); SODIUM 149 MMOL/L (135-145); TOTAL CARBON DIOXIDE 31.7 MMOL/L (24-32); TOTAL PROTEIN 7.8 G/DL (6.4-8.2); eCRCL 89 ML/MIN; eGFR > 90 ML/MIN
== END 2024-10-29 18:01 | DRG 720 ==
LOC: ER 13:05 → ED HOLD 18:06 → CICU 2S 10-23 15:19 → PCU 3S 10-29 10:10
PROVIDERS: ADMIT Internal Medicine Critical Care Medicine; ATTEND Internal Medicine Critical Care Medicine
PROC: 02HV33Z Insertion of Infusion Device into Superior Vena Cava, Percutaneous Approach (ICD-10-PCS; principal; 2024-10-22)
PROC: B548ZZA Ultrasonography of Superior Vena Cava, Guidance (ICD-10-PCS; 2024-10-22)
PROC: BW251ZZ Computerized Tomography (CT Scan) of Chest, Abdomen and Pelvis using Low Osmolar Contrast (ICD-10-PCS; 2024-10-22)
PROC: 5A1955Z Respiratory Ventilation, Greater than 96 Consecutive Hours (ICD-10-PCS; 2024-10-23)
PROC: 0BH17EZ Insertion of Endotracheal Airway into Trachea, Via Natural or Artificial Opening (ICD-10-PCS; 2024-10-23)
DX: A41.9 Sepsis, unspecified organism (principal); J96.01 Acute respiratory failure with hypoxia; J18.9 Pneumonia, unspecified organism; G82.20 Paraplegia, unspecified; N17.9 Acute kidney failure, unspecified; I50.30 Unspecified diastolic (congestive) heart failure; R65.20 Severe sepsis without septic shock; Z79.01 Long term (current) use of anticoagulants; Z88.0 Allergy status to penicillin; Z88.1 Allergy status to other antibiotic agents; Z79.899 Other long term (current) drug therapy; Z86.718 Personal history of other venous thrombosis and embolism
CPT/HCPCS: 36415; 36600; 70450; 71045; 71260; 74177; 80048; 80053; 81001; 82550; 82803; 82948; 83036; 83605; 83735; 84100; 84134; 84145; 85018; 85025; 85610; 85730; 87040; 87070; 87077; 87081; 87088; 87186; 92508; 92616; 93005; 93306; 94002; 94003; 94640; 94760; 94799; 99291; A4333; A4615; A5200; A6213; A6250; A6258; A6402; A6446; A6449; A7015; C1751; C1758; G0378; J0878; J1335; J1644; J1815; J1940; J2405; J2470; J2704; J3010; J3480; J3490; J7030; J7040; J7050; P9045; Q9967

== ENCOUNTER 2025-01-29 05:10 | Emergency (ER) | payer MEDICAID ==
[~2025-01-29] VITALS: Ht 180.3 cm; Wt 103.1 kg
[~2025-01-29 05:10] MED LIST changes: +ALB0.5UD IH; +APIX5TAB3 PO; -APIX5TAB5 PO; +DILAUDID IV; +DILAUDID SQ; +DIPH25CA52 PO; +DOCU100E RC; -DOCU1ENE3; +DULO-31 PO; -ESCI-8 PO; +FLUT9.9S BOTHNARES; +GABA-530 PO; -GUAIFENESIN PO; -HYDR1LIQ3 IV; +LIDO5CRE26 TOP; +LORA10TA7 PO; +MENTHOL PO; +NYSPWD TP; -NYST50002 PO; +OXYB15TA19 PO; -OXYB5TAB21 PO; +OXYC-658 PO; -OXYC5CAP22 PO; +VALP250C44 PO; -VALP250S26 PO; -VANC750P15 IV; -ZINC57OI3 TOP
[2025-01-29 05:23] VITALS: TEMP 95.9
[2025-01-29 05:27] VITALS: PULSE 77; RESP 17; O2SAT 91
[2025-01-29 05:53] LABS: ABG HCO3 52.5 mmol/L (21.0-28.0); ABG OXYGEN SATURATION 92.7 % (94.0-98.0); ABG PCO2 (T) > 150.0 mmHg (35.0-48.0); ABG PH (T) 7.152 (7.350-7.450); ABG PO2 (T) 80.1 mmHg (83.0-108.0); ALLEN'S TEST POSITIVE; FCOHb 0.4 % (0.5-1.5); FHHb 7.2 % (0.0-5.0); FMetHb 0.3 % (0.0-1.5); FO2Hb 92.1 % (94.0-98.0); MODE MASK - BIPAP; RESPIRATORY RATE 12 b/min; TIDAL VOLUME 342 mL; TOTAL HEMOGLOBIN 10.1 G/dl (13.5-17.5)
[2025-01-29 05:54] LABS: BILIRUBIN,URINE NEGATIVE (Neg); CLARITY,URINE CLOUDY (Clear); COLOR,URINE YELLOW (Yellow); GLUCOSE, URINE NEGATIVE (Neg); KETONES,URINE NEGATIVE (Neg); LEUKOCYTE ESTERASE ,URINE MODERATE (Neg); NITRITES, URINE POSITIVE (Neg); OCCULT BLOOD,URINE MODERATE (Neg); PROTEIN,URINE 30 mg/dl (Neg); UROBILINOGEN,URINE 0.2 E.U/dL (0.2-1.0)
[2025-01-29 05:56] LABS: UA COLLECTION TYPE CLN CATCH MIDSTREAM
[2025-01-29 06:03] LABS: BACTERIA,URINE 4+ /HPF (Neg); SQUAMOUS EPITHELIAL CELL,UR MODERATE /LPF (FEW); WBC,URINE 50-100 /HPF (0-4)
[2025-01-29 06:04] LABS: MUCUS STRANDS NONE SEEN /LPF (Neg)
[2025-01-29] MEDS ORDERED: FURO-150 PO (06:27)
[2025-01-29] MEDS ORDERED: ZOLP5TAB8 PO (06:27)
[2025-01-29] MEDS ORDERED: OMEP40CA21 PO (06:27)
[2025-01-29 08:23] VITALS: PULSE 75; RESP 23; O2SAT 91
[2025-01-29 08:25] LABS: BASOPHILS % (AUTO) 0.2 % (0-1); EOSINOPHILS % (AUTO) 0.1 % (0-6); HEMATOCRIT 29.7 % (42.0-52.0); LYMPHOCYTES # (AUTO) 0.6 X10'3 (1.1-4.8); MEAN CORPUSCULAR HEMOGLOBIN 22.3 PG (27.0-31.0); MEAN CORPUSCULAR HGB CONC 30.3 g/dL (33.0-36.5); MEAN CORPUSCULAR VOLUME 73.6 FL (78-98); MEAN PLATELET VOLUME 7.8 FL (7.4-10.4); MONOCYTES # (AUTO) 0.7 X10'3 (0-0.9); MONOCYTES % (AUTO) 6.7 % (2-12); NEUTROPHILS # (AUTO) 9.9 X10'3 (1.8-7.7); PLATELET COUNT 146 X10'3 (140-440); RED BLOOD COUNT 4.04 X10'6 (4.70-6.10); RED CELL DISTRIBUTION WIDTH 18.1 % (11.5-14.5); WHITE BLOOD COUNT 11.2 X10'3 (4.5-11.0)
[2025-01-29 08:31] LABS: ALANINE AMINOTRANSFERASE 6 U/L (12-78); ALBUMIN 2.3 G/DL (3.4-5.0); ALBUMIN/GLOBULIN RATIO 0.4 (1.1-1.5); ALKALINE PHOSPHATASE 97 IU/L (46-116); ANION GAP 2 (8-16); ASPARTATE AMINO TRANSFERASE 13 U/L (10-37); BILIRUBIN,TOTAL 0.2 MG/DL (0.1-1.0); BLOOD UREA NITROGEN 25 MG/DL (7-18); BUN/CREATININE RATIO 40.3 (10.0-20.0); CALCIUM 8.7 MG/DL (8.5-10.1); CHLORIDE 91 MMOL/L (99-107); CREATININE 0.62 MG/DL (0.60-1.10); GLUCOSE 98 MG/DL (70-104); POTASSIUM 3.8 MMOL/L (3.5-5.1); PRO BRAIN NATRIURETIC PEPTIDE 1033 PG/ML (0-125); SODIUM 135 MMOL/L (135-145); eCRCL 137 ML/MIN; eGFR > 90 ML/MIN
[2025-01-29 08:36] LABS: TOTAL CARBON DIOXIDE 42.3 MMOL/L (24-32)
[2025-01-29 08:48] VITALS: RESP 21
[2025-01-29] MEDS: acetaminophen 1,000mg/100ml IV 100 ML IV ONE (09:12)
[2025-01-29 09:36] LABS: ABG BASE EXCESS 14.8 mmol/L (-2.0-3.0); ABG HCO3 45.9 mmol/L (21.0-28.0); ABG OXYGEN SATURATION 88.8 % (94.0-98.0); ABG PCO2 (T) 112.7 mmHg (35.0-48.0); ABG PH (T) 7.225 (7.350-7.450); ABG PO2 (T) 60.3 mmHg (83.0-108.0); ALLEN'S TEST POSITIVE; FCOHb 0.6 % (0.5-1.5); FHHb 11.1 % (0.0-5.0); FLOW 3 L/min; FMetHb 0.3 % (0.0-1.5); MODE NASAL CANNULA; PATIENT TEMPERATURE 36.5; TOTAL HEMOGLOBIN 9.7 G/dl (13.5-17.5)
[2025-01-29] MEDS: oxyCODONE IR 5mg (immed. release) tablet PO ONE (10:52)
[2025-01-29 11:21] VITALS: BP 140/57; O2SAT 97
== END 2025-01-29 14:10 ==
LOC: ER 05:11
DX: J96.92 Respiratory failure, unspecified with hypercapnia (principal); Z88.0 Allergy status to penicillin; Z88.1 Allergy status to other antibiotic agents; Z88.6 Allergy status to analgesic agent; Z88.8 Allergy status to other drugs, medicaments and biological substances
CPT/HCPCS: 36415; 36600; 71045; 80053; 81001; 82803; 83605; 83880; 84145; 84484; 85018; 85025; 87040; 87077; 87088; 87186; 93005; 94660; 96374; 99291; J0131; 94760